=== PATIENT | female | born 1995 | race Two or more races ===

== ENCOUNTER → 2018-09-03 02:58 | Emergency (ER) | payer OTHER ==
--- NOTE | 2018-09-03 04:06 | ED ---
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 She did have a single day of lower abdominal pain associated with the onset of her menses 3 days ago, at the end of which she passed what appeared to be a small amount of tissue. She went to [facility] and had a negative test. Her pain resolved, and she continued to have her normal menses , which incidentally started 4 days late. This morning when she woke up she felt short of breath and had some associated chest tightness, this seemed to fade during the course of the day, only to be replaced by intermittent bilateral lower extremity paresthesias. She has not had any cough, no URI symptoms, no lightheadedness, dizziness, or passing out. Nothing seems to make this any better or any worse. She denies feeling anxious. - History of Current Complaint Chief Complaint: EDGeneral Time Seen by Provider: 09/03/18 03:55 - Allergy/Home Medications Allergies/Adverse Reactions: Allergies Allergy/AdvReac Type Severity Reaction Status Date / Time Penicillins Allergy Rash Verified 09/03/18 03:13 PMH/Surg Hx/FS Hx/Imm Hx Infectious Disease History: No Infectious Disease History: Denies: Traveled Outside the [place] in Last 30 Days Review of Systems Negative: Fever, Chills Negative: Sore Throat Positive: Chest Pain. Negative: Palpitations Positive: Shortness Of Breath. Negative: Cough Positive: Abdominal Pain. Negative: Vomiting, Diarrhea All Other Systems Reviewed And Are Negative: Yes Physical Exam - Summary Physical Exam Summary: General: This is a well-developed, well- nourished young woman lying on the stretcher in no apparent distress. The patient does not appear ill or toxic. HEENT:Extraocular movements are intact. Conjunctiva are normal without pallor. Pharynx is clear without exudate or swelling. Dentition is unremarkable. There is no sign of head trauma. Neck: Supple, no adenopathy noted. Lungs: Lungs are clear to auscultation. There are no signs of respiratory distress. Coronary: Peripheral perfusion is good. Heart sounds are regular, a normal S1 and S2 were auscultated. There is no gallop rhythm, nor any pathological sounded murmurs. Abdomen: The abdomen appears normal and is nondistended. Normoactive bowel sounds are present. On palpation, there is no significant tenderness, nor any guarding or rebound. There is no hepatosplenomegaly, nor any masses. Genitourinary: Deferred Back: Good range of motion is observed. There are no surface abnormalities nor any scoliosis. Extremities: Good range of motion was observed in all 4 extremities. There is no sign of any trauma to the extremities. Neurologic: The patient is awake and alert, speech is fluent in conversation is appropriate. There are no focal motor abnormalities. Cranial nerves are grossly intact. Deep tendon reflexes are 2+ and symmetric. There is no ataxia observed. Psychiatric. The patients affect is felt to be normal and appropriate. There is no sign of any hallucinations or delusions, or any other signs of psychosis. Vital Signs On Initial Exam: Initial Vitals Temp Pulse Resp BP Pulse Ox 37.1 C 64 18 123/71 100 09/03/18 03:11 09/03/18 03:11 09/03/18 03:11 09/03/18 03:11 09/03/18 03:11 Diagnostics - Vital Signs Vital Signs Temp Pulse Resp BP Pulse Ox 09/03/18 03:11 37.1 C 64 18 123/71 100 - Laboratory Result Diagrams: 09/03/18 04:13 09/03/18 04:13 Lab Statement: Any lab studies that have been ordered have been reviewed, and results considered in the medical decision making process. 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 She is not , and reports a neg hcg on that day at [facility], it remains neg here tonight. She appears well. Assessed for thromboembolic disease, clinically unlikely and d dimer is neg. Migratory paresthesias likely due to anxiety associated with this illness, but no sign of any serious pathology is found. - Diagnoses Differential Diagnosis/HQI/PQRI: Positive: Pneumonia, Pneumothorax, Pulmonary Embolism Provider Diagnoses: Dyspnea Discharge - Sign-Out/Discharge Documenting (check all that apply): Patient Departure - Discharge Plan Condition: Good Disposition: HOME Patient Education Materials: Paresthesia (ED), Dyspnea (ED) Referrals: [facility] [Outside] - Billing Disposition and Condition Condition: GOOD Disposition: Home - Attestation Statements Document Initiated by Frankie: Yulissa
[2018-09-03 04:23] LABS: ABS Basophils 0.1 10^3/ul (0-0.2); ABS Eosinophils 0.1 10^3/ul (0-0.6); ABS Lymphocytes 2.7 10^3/ul (1.0-4.8); ABS Monocytes 0.3 10^3/ul (0-0.8); ABS Neutrophils 2.4 10^3/ul (1.5-7.7); ABS Nucleated RBC 0 10^3/ul; Eosinophil % 1.6 %; Hematocrit 38 % (35-47); Hemoglobin 12.9 g/dl (12.0-16.0); Lymphocyte % 48.6 %; Mean Corpuscular HGB Conc 34 g/dl (31-36); Mean Corpuscular Hemoglobin 29 pg (27-31); Mean Corpuscular Volume 87 fL (80-97); Mean Platelet Volume 7.9 fL (7.4-10.4); Nucleated Red Blood Cells % 0.1; Platelet Count 327 10^3/ul (150-450); Red Blood Count 4.37 10^6/ul (4.00-5.40); Red Cell Distribution Width 14 % (10.5-15); White Blood Count 5.6 10^3/ul (3.5-10.8)
[2018-09-03 04:40] LABS: EGFR Non-African American 128.7 (>60)
[2018-09-03 06:16] VITALS: BP 99/75
== END | disposition home or self-care (01) ==
LOC: ED 02:58
DX: R06.00 Dyspnea, unspecified (principal); R07.9 Chest pain, unspecified; R06.02 Shortness of breath
CPT/HCPCS: 36415; 71045; 80053; 84484; 84702; 85025; 85379; 93005; 99282

== ENCOUNTER 2018-11-26 22:39 | Emergency (ER) | payer OTHER ==
--- OUTSIDE RECORDS SUMMARY | 2018-11-26 23:12 | XMS REPORT | Continuity of Care Document ---
:1995 External Reference #:[id number] Author Name Shu Can CNM Address [address] [place] [address] Care Team Providers Name Role Phone Melissa Washington MD Primary Care Physician Unavailable Payers Date Identification Numbers Payment Provider Subscriber Policy Number: [id number] [employer] Ppo Chelsie Faye PayID: [id number] [address] [place] [address] Advance Directives Description No Information Available Problems Description No Information Family History Date Family Member(s) Observation Comments Father A&W Mother A&W Siblings 2 First Sister A&W Second Sister A&W Paternal Grandfather A&W Paternal Grandmother A&W Maternal Grandfather A&W Maternal Grandmother A&W Social History Type Date Description Comments Sex Unknown Marital Status Single Lives With Roommate Lives With Sister Occupation Student Tobacco Use Start: Unknown Never Smoked Cigarettes ETOH Use Denies alcohol use Recreational Drug Use Denies Drug Use Tobacco Use Start: Unknown Patient has never smoked Smoking Status Reviewed: 10/31/18 Patient has never smoked Exercise Type/Frequency Occasionally Seat Belt/Car Seat Always uses seat belt Currently Active Patient is currently sexually active Contraceptive Methods Current methods include condoms STD's No STD History Allergies, Adverse Reactions, Alerts Date Description Reaction Status Severity Comments 08/01/2018 Penicillin Active Medications Description No Information Medications Administered in Office Medication Date Status Form Strength Qnty SIG Indications Ordering Provider PT SCRN Tbco Administered Injection Shu Id as Non User 019 KALEY Can PT SCRN Tbco Administered Injection Elizabeth Id as Non User 018 MD Deng Immunizations Description No Information Available Vital Signs Date Vital Result Comment 10/31/2018 8:07am BP Systolic 108 mmHg BP Diastolic 68 mmHg Height 61.75 inches 5'1.75" Weight 112.00 lb BMI (Body Mass Index) 20.6 kg/m2 Last Menstrual Period [id number] 0 08/01/2018 8:31am BP Systolic 108 mmHg BP Diastolic 70 mmHg Height 61.75 inches 5'1.75" Weight 111.00 lb BMI (Body Mass Index) 20.5 kg/m2 Last Menstrual Period [id number] 0 Parity 0 Results Test Date Facility Test Result H/L Range Note Laboratory test 10/31/2018 [facility] Gardnerella/Yeas <pending > [place] [address] t: Vaginal Dna [phone] GC/Chlamydia Dna 08/01/2018 [facility] Chlamydia [place] [address] trachomatis Rna [phone] Neisseria gonorrhoeae (GC) Rna Negative Negative Herpes Simplex 08/01/2018 [facility] Herpes Equivocal Negative 1, 2 Type 1&2 [place] [address] Simplex Virus [phone] I IgG AB Herpes Simplex Virus II IgG AB Negative Negative 3 Laboratory test 08/01/2018 [facility] Herpes Negative Negative [address] [place] [address] Simplex Igm [phone] Screen 1 left message on cell phone with [email or web address] 2 Recommend follow-up testing in 10-14 days if clinically indicated. 3 Test Performed by: [facility] [place] [phone] ADDITIONAL INFORMATION This test has been modified from the automatic washer mechanic's instructions. Its performance characteristics were determined by [facility] in a manner consistent with CLIA requirements. This test has not been cleared or approved by the U.S. Food and Drug Administration. Test Performed by: [facility] [place] [place] [address] Procedures Description No Information Available Encounters Type Date Location Provider Dx Diagnosis Office Visit 10/31/2018 8:00a Psychiatric Office Shu Can CNM N76.0 Acute vaginitis Office Visit 08/01/2018 8:30a East Office Elizabeth Vilchis MD N76.2 Acute vulvitis Plan of Treatment 08/01/2018 - Elizabeth Vilchis MDN76.2 Acute vulvitisComments:Pt report "flare" of vuvlar irrigation. Pt with probable response to irritation from intercourse useof condoms. Pt reassured regarding findings see no evidence of STI. Will check HSV titer to assure no evidence of HSV as source of intermittent inflammation.
[2018-11-26 23:35] LABS: Urine Appearance Cloudy; Urine Bacteria Absent (Absent); Urine Bilirubin Negative (Negative); Urine Blood 3+ (Negative); Urine Color Red; Urine Glucose 1+(50 mg/dL) (Negative); Urine Ketones Negative (Negative); Urine Nitrite Negative (Negative); Urine Protein 2+(100 mg/dL) (Negative); Urine Red Blood Cell 3+(>10/hpf) (Absent); Urine Specific Gravity 1.004 (1.010-1.030); Urine Urobilinogen Negative (Negative); Urine White Blood Cell 3+(>20/hpf) (Absent)
[2018-11-27] MEDS ORDERED: Sulfamethox/Trimethoprim DS 800/160* TAB PO ONE (01:35)
[2018-11-27] MEDS ORDERED: Phenazopyridine TAB* 100 MG PO ONE (01:35)
--- NOTE | 2018-11-27 01:35 | ED ---
GI/ HPI - HPI Summary HPI Summary: This patient is a 22 year old F presenting to [facility] accompanied by a male with a chief complaint of foamy, foul-smelling urine since one week ago. The patient rates the pain 7/10 in severity. Patient reports lower pelvic pain, increased urinary frequency, and hematuria. LKMP 5 days ago. No PMHx UTI. - History of Current Complaint Chief Complaint: EDUrogenitalProblems Time Seen by Provider: 11/27/18 01:22 Stated Complaint: "FREQUENT BLOODY URINATION AND CHILLS" PER PT Hx Obtained From: Patient Onset/Duration: Started Weeks Ago - 1 Timing: Constant Current Severity: Moderate - 7/10 Pain Intensity: 7 Location of Pain: Groin Associated Signs and Symptoms: Positive: Hematuria, Abdominal Pain, UTI Symptoms - Allergy/Home Medications Allergies/Adverse Reactions: Allergies Allergy/AdvReac Type Severity Reaction Status Date / Time Penicillins Allergy Rash Verified 11/26/18 23:04 Home Medications: Home Medications Albuterol HFA INHALER* 1 - 2 puff INH Q6H PRN 11/27/18 [History Confirmed ] PMH/Surg Hx/FS Hx/Imm Hx History: Denies: Hx Dialysis Sensory History: Denies: Hx Deafness - Immunization History Immunizations Up to Date: Yes Infectious Disease History: No Infectious Disease History: Denies: Traveled Outside the [place] in Last 30 Days - Family History Known Family History: Positive: Non-Contributory - Social History Alcohol Use: Rare Substance Use Type: Reports: None Smoking Status (MU): Never Smoked Tobacco Review of Systems Positive: frequency, hematuria, other - foul smell Positive: Myalgia - lower pelvic pain All Other Systems Reviewed And Are Negative: Yes Physical Exam - Summary Physical Exam Summary: VITAL SIGNS: Reviewed. GENERAL: Patient is a well-developed and nourished female who is lying comfortable in the stretcher. Patient is not in any acute respiratory distress. HEAD AND FACE: No signs of trauma. No ecchymosis, hematomas or skull depressions. No sinus tenderness. EYES: PERRLA, EOMI x 2, No injected conjunctiva, no nystagmus. EARS: Hearing grossly intact. Ear canals and tympanic membranes are within normal limits. MOUTH: Oropharynx within normal limits. NECK: Supple, trachea is midline, no adenopathy, no JVD, no carotid bruit, no c- spine tenderness, neck with full ROM. CHEST: Symmetric, no tenderness at palpation LUNGS: Clear to auscultation bilaterally. No wheezing or crackles. CVS: Regular rate and rhythm, S1 and S2 present, no murmurs or gallops appreciated. ABDOMEN: Soft. Mild RLQ tenderness. No signs of distention. No rebound no guarding, and no masses palpated. Bowel sounds are normal. EXTREMITIES: FROM in all major joints, no edema, no cyanosis or clubbing. NEURO: Alert and oriented x 3. No acute neurological deficits. Speech is normal and follows commands. SKIN: Dry and warm Triage Information Reviewed: Yes Vital Signs On Initial Exam: Initial Vitals Temp Pulse Resp BP Pulse Ox 99.2 F 82 16 144/125 97 11/26/18 23:03 11/26/18 23:03 11/26/18 23:03 11/26/18 23:03 11/26/18 23:03 Vital Signs Reviewed: Yes Diagnostics - Vital Signs Vital Signs Temp Pulse Resp BP Pulse Ox 11/27/18 01:19 79 121/79 99 11/27/18 01:18 82 97 11/26/18 23:03 99.2 F 82 16 144/125 97 - Laboratory Lab Results: Lab Results 11/26/18 Range/Units 23:21 Urine Color Red A Urine Appearance Cloudy Urine pH 6.0 (5-9) Ur Specific [place] 1.004 L (1.010-1.030) Urine Protein 2+(100 mg/dl) A (Negative) Urine Ketones Negative (Negative) Urine Blood 3+ A (Negative) Urine Nitrate Negative (Negative) Urine Bilirubin Negative (Negative) Urine Urobilinogen Negative (Negative) Ur Leukocyte Esterase 2+ A (Negative) Urine WBC (Auto) 3+(>20/hpf) A (Absent) Urine RBC (Auto) 3+(>10/hpf) A (Absent) Urine Bacteria Absent (Absent) Urine Glucose 1+(50 mg/dl) A (Negative) Lab Statement: Any lab studies that have been ordered have been reviewed, and results considered in the medical decision making process. GIGU Course/Dx - Course Course Of Treatment: This patient is a 22 year old F presenting to [facility] accompanied by a male with a chief complaint of foamy, foul-smelling urine since one week ago. The patient rates the pain 7/10 in severity. Patient reports lower pelvic pain, increased urinary frequency, and hematuria. Test results with no significant abnormalities. In the ED course the patient was given Phenazopyridine and Sulfamethox. Patient will be discharged with prescription for Phenazopyridine and Sulfamethox and follow up from [facility]. The patient is agreeable with this plan. - Diagnoses Provider Diagnoses: UTI (urinary tract infection) Discharge - Sign-Out/Discharge Documenting (check all that apply): Patient Departure - discharge Patient Received Moderate/Deep Sedation with Procedure: No - Discharge Plan Condition: Stable Disposition: HOME Prescriptions: Phenazopyridine TAB* [Pyridium 100 mg TAB*] 100 mg PO TID PRN #7 tab PRN Reason: Pain Sulfamethox/Trimethoprim DS* [Bactrim DS 800/160 TAB*] 1 tab PO BID #10 tab Patient Education Materials: Urinary Tract Infection in Women (ED) Referrals: [facility] [Provider Group] Additional Instructions: RETURN TO THE EMERGENCY DEPARTMENT FOR CHANGING OR WORSENING SYMPTOMS. FOLLOW UP WITH PCP IF NEEDED - Attestation Statements Document Initiated by Frankie: Yes Documenting Scribe: Jovanny Yanez Provider For Whom Frankie is Documenting (Include Credential): Charito Simmons MD Scribe Attestation: Jovanny Escamilla, scribed for Charito Simmons MD on 11/27/18 at 0148. Status of Scribe Document: Ready
[2018-11-27 01:55] VITALS: BP 104/66
== END 2018-11-27 01:59 | disposition home or self-care (01) ==
LOC: ED 22:39
DX: N39.0 Urinary tract infection, site not specified (principal); R31.9 Hematuria, unspecified; Z88.0 Allergy status to penicillin
CPT/HCPCS: 81003; 81015; 87086; 99283; A9270-GY